=== PATIENT | male | born 1965 | race Hispanic/Latino ===

== ENCOUNTER 2017-07-03 11:02 | Inpatient (IN) | payer OTHER ==
[2017-07-03] VITALS (11 sets, daily range): BP systolic 136–187; BP diastolic 58–80
[~2017-07-03] VITALS: Ht 182.9 cm; Wt 88.7 kg
[2017-07-03] MEDS ORDERED: HEPARIN SODIUM 1000UNIT/ML 10ML VIAL ONE (13:46)
[2017-07-03] MEDS ORDERED: BIVALIRUDIN 250 MG/VIAL IV ONE (13:46)
[2017-07-03] MEDS ORDERED: LIDOCAINE HCL 2% 20ML ONE ×2 (13:47→14:11)
[2017-07-03] MEDS ORDERED: NITROGLYCERIN 5 MG/ML 10 ML VIAL IV ONE (13:47)
[2017-07-03] MEDS ORDERED: ISOVUE-370 50ML VIAL IV ONE (13:51)
[2017-07-03] MEDS ORDERED: IOPAMIDOL-370 100 ML VIAL IV ONE (13:51)
[2017-07-03] MEDS ORDERED: FENTANYL CITRATE PF 50 MCG/1 ML 2ML VIAL ONE (14:03)
[2017-07-03] MEDS ORDERED: MIDAZOLAM HCL 1 MG/ML 2ML VIAL ONE (14:03)
[2017-07-03] MEDS ORDERED: NITROGLYCERIN 0.4 MG SL TAB SL PRN (14:30)
[2017-07-03] MEDS ORDERED: INSULIN HUMULIN R 100 UNIT/ML 3ML ONE (18:10)
[2017-07-03] MEDS ORDERED: MINO2.5T3 PO (18:58)
[2017-07-03] MEDS ORDERED: VALS160T28 PO (18:58)
[2017-07-03] MEDS ORDERED: HYDR-4060 PO (18:58)
[2017-07-03] MEDS ORDERED: INSLAN SQ (18:58)
[2017-07-03] MEDS ORDERED: HYDR100T27 PO (18:58)
[2017-07-03] MEDS ORDERED: PANT40TA25 PO (18:58)
[2017-07-03] MEDS ORDERED: NIFE90TA49 PO (18:58)
[2017-07-03] MEDS ORDERED: GABA-531 PO (18:58)
[2017-07-03] MEDS ORDERED: INSU100I3 SQ (18:58)
[2017-07-03] MEDS ORDERED: CALC667C10 PO (18:58)
[2017-07-03] MEDS: INSULIN HUMULIN R 100 UNIT/ML 3ML SQ SCH (21:48)
[2017-07-04 03:00] VITALS: BP 152/75
[2017-07-04] MEDS ORDERED: ONDANSETRON HCL 4 MG/2 ML VIAL IVP PRN (03:00)
[2017-07-04] MEDS ORDERED: MORPHINE SULFATE 2 MG/ML 1ML SYG IVP PRN (03:00)
[2017-07-04] MEDS ORDERED: HYDRALAZINE HCL 20 MG/ML VIAL IV PRN (03:00)
[2017-07-04] MEDS ORDERED: ONDANSETRON HCL 4 MG/2 ML VIAL ONE (03:25)
[2017-07-04] MEDS ORDERED: MORPHINE SULFATE 2 MG/ML 1ML SYG ONE (03:27)
[2017-07-04 04:29] LABS: HEMATOCRIT 28.6 % (42-54); MEAN CORPUSCULAR HGB CONC 33.7 g/dL (32.0-36.0); PLATELET COUNT (AUTO) 168 K/uL (130-400); RED BLOOD CELL COUNT(AUTO) 3.33 MIL/uL (4.50-6.20); WHITE BLOOD COUNT (AUTO) 8.4 K/uL (4.8-10.8)
[2017-07-04 04:39] LABS: PARTIAL THROMBOPLASTIN TIME 27.1 SEC (26.3-35.5); PROTHROMBIN TIME 10.5 SEC (9.6-11.6)
[2017-07-04 05:03] LABS: CREATINE KINASE MB 4.6 ng/mL (0.5-3.6); POTASSIUM 4.6 mmol/L (3.5-5.1)
[2017-07-04 05:04] LABS: CREATININE 10.7 mg/dL (0.5-1.5)
[2017-07-04 05:05] LABS: TROPONIN I 3.73 ng/mL (0.00-0.06)
[2017-07-04] MEDS: INSULIN HUMULIN R 100 UNIT/ML 3ML SQ SCH ×3 (05:59→16:36)
[2017-07-04] MEDS ORDERED: PANTOPRAZOLE SODIUM 40 MG TABLET.DR PO SCH (07:30)
[2017-07-04 07:59] VITALS: BP 162/75
[2017-07-04] MEDS: CALCIUM ACETATE 667 MG CAPSULE PO SCH ×3 (08:08→16:34)
[2017-07-04] MEDS: GABAPENTIN 300 MG CAPSULE PO SCH ×2 (08:08→13:57)
[2017-07-04] MEDS ORDERED: LOSARTAN 100 MG TABLET PO SCH (09:00)
[2017-07-04] MEDS ORDERED: NIFEDIPINE ER 30 MG TAB PO SCH (09:00)
[2017-07-04] MEDS ORDERED: FAMOTIDINE/PF 20 MG/2 ML VIAL IV SCH (09:00)
[2017-07-04 11:47] VITALS: BP 130/48
[2017-07-04] MEDS ORDERED: HEPARIN SODIUM 5000UNIT/ML 1ML VIAL IJ PRN (15:15)
[2017-07-04] MEDS ORDERED: ALBUMIN (HUMAN) 25% 100 ML IV PRN (15:15)
[2017-07-04] MEDS ORDERED: SODIUM CHLORIDE 0.9% 1000ML 1,000 ML IV PRN (15:15)
[2017-07-04] MEDS ORDERED: 0.9% SODIUM CHLORIDE 250 ML IV BAG IV PRN (15:15)
[2017-07-04 16:00] VITALS: BP 196/77
[2017-07-04] MEDS ORDERED: INSULIN DETEMIR 10ML 100 UNIT/ML 10ML SQ SCH (21:00)
== END 2017-07-04 18:00 | disposition home or self-care (01) | DRG 871 ==
LOC: OBSVTOIN 12:19 → 2AH 12:19
PROVIDERS: ADMIT Family Medicine; ATTEND Family Medicine
PROC: B2151ZZ Fluoroscopy of Left Heart using Low Osmolar Contrast (ICD-10-PCS; principal; 2017-07-03)
PROC: B2111ZZ Fluoroscopy of Multiple Coronary Arteries using Low Osmolar Contrast (ICD-10-PCS; 2017-07-03)
PROC: 4A023N7 Measurement of Cardiac Sampling and Pressure, Left Heart, Percutaneous Approach (ICD-10-PCS; 2017-07-03)
PROC: 5A1D70Z Performance of Urinary Filtration, Intermittent, Less than 6 Hours Per Day (ICD-10-PCS; 2017-07-04)
DX: A41.9 Sepsis, unspecified organism (principal); N18.6 End stage renal disease; E11.22 Type 2 diabetes mellitus with diabetic chronic kidney disease; I12.0 Hypertensive chronic kidney disease with stage 5 chronic kidney disease or end stage renal disease; I27.20 Pulmonary hypertension, unspecified; M62.82 Rhabdomyolysis; E78.00 Pure hypercholesterolemia, unspecified; E78.5 Hyperlipidemia, unspecified; I25.10 Atherosclerotic heart disease of native coronary artery without angina pectoris; Z99.2 Dependence on renal dialysis; Z83.3 Family history of diabetes mellitus; Z82.49 Family history of ischemic heart disease and other diseases of the circulatory system
CPT/HCPCS: 36415; 80048; 82550; 82553; 82948; 83605; 83874; 84484; 85027; 85610; 85730; 90935; 93458; 99152; 99153; C1894; J0583; J1644; J1815; J2250; J2405; J3010; J3490; Q9967